=== PATIENT | male | born 1975 | race Caucasian/White ===

== ENCOUNTER 2018-05-26 05:38 | Emergency (ER) | payer OTHER ==
[~2018-05-26] VITALS: Ht 190.5 cm; Wt 107.0 kg
[~2018-05-26 05:38] MED LIST: Bactrim Ds Tab1 EACH PO; IBUP800 PO; Keflex500 MG PO; LIDO5TP TOP; Percocet 5-3251 EACH PO; Robaxin-750750 MG PO
[2018-05-26] MEDS ORDERED: DOXY100 (05:54)
[2018-05-26 06:03] LABS: BASOPHILS ABSOLUTE AUTO 0.02 K/mm3 (0.00-0.23); BASOPHILS PERCENT AUTO 0 % (0-2); EOSINOPHILS ABSOLUTE AUTO 0.12 K/mm3 (0.00-0.68); EOSINOPHILS PERCENT AUTO 2 % (0-6); Hematocrit 46.3 % (37.0-53.0); Hemoglobin 16.3 g/dL (13.5-17.5); IMMATURE GRAN ABSOLUTE AUTO 0.03 K/mm3 (0.00-0.10); IMMATURE GRAN PERCENT AUTO 1 % (0-1); LYMPHOCYTES ABSOLUTE AUTO 1.31 K/mm3 (0.84-5.20); LYMPHOCYTES PERCENT AUTO 25 % (21-46); MONOCYTES PERCENT AUTO 8 % (4-13); Mean Corpuscular HGB 30.1 pg (26.0-34.0); Mean Corpuscular HGB Conc 35.2 g/dL (31.5-36.5); Mean Corpuscular Volume 85 fL (80-100); Mean Platelet Volume 10.2 fL (9.1-12.4); NEUTROPHILS ABSOLUTE AUTO 3.42 K/mm3 (1.96-9.15); NEUTROPHILS PERCENT AUTO 65 % (41-73); Platelet Count 175 K/mm3 (150-400); RDW Coefficient Variation 12.2 % (11.7-14.2); RDW Standard Deviation 37.4 fL (35.1-46.3); Red Blood Cell Count 5.42 M/mm3 (4.30-5.90)
[2018-05-26 06:32] LABS: Troponin I <0.015 ng/mL (0.000-0.040)
[2018-05-26 06:38] LABS: Albumin, Blood 4.1 g/dL (3.4-5.0); Alk Phos 53 U/L (50-136); Anion Gap 10 mmol/L (6-16); Bilirubin, Total 0.5 mg/dL (0.1-1.0); CO2, Blood 26 mmol/L (21-32); Calcium, Blood 8.7 mg/dL (8.5-10.1); Chloride, Blood 104 mmol/L (98-108); Creatinine, Blood 0.93 mg/dL (0.60-1.20); Glomerular Filtration Rate >60 (60-); Glucose, Blood 110 mg/dL (70-99); Potassium, Blood 3.9 mmol/L (3.5-5.5); Sodium, Blood 140 mmol/L (136-145)
[2018-05-26 06:39] LABS: Alanine Aminotransfer (ALT/SGP 57 U/L (12-78); Albumin/Globulin Ratio 1.2 (0.8-1.8); Blood Urea Nitrogen 15 mg/dL (8-24); Bun/Creatinine Ratio 16.1 (12.0-20.0); Globulin, Blood 3.5 g/dL (2.2-4.0); Total Protein, Blood 7.6 g/dL (6.4-8.2)
[2018-05-26 06:43] LABS: Aspartate Aminotrans (AST/SGOT 49 U/L (12-37)
== END 2018-05-26 11:10 | disposition home or self-care (01) ==
LOC: ER 05:38
PROVIDERS: Emergency Medicine
DX: R07.2 Precordial pain (principal); J84.10 Pulmonary fibrosis, unspecified; I10 Essential (primary) hypertension
CPT/HCPCS: 36415; 71046; 80053; 83880; 84484; 85025; 93005; 93010; 96374; 99284-25; J1885